=== PATIENT | female | born 1955 | race Two or more races ===

== ENCOUNTER 2017-07-29 06:37 | Day surgery (SDC) | payer MEDICAID ==
[2017-07-28 11:32] LABS: Basophils # (auto) 0 uL; Basophils % (auto) 0.8 % (0.0-2.0); Eosinophils # (auto) 0.1 uL; Eosinophils % (auto) 1.9 % (0.0-7.0); Hematocrit 40.9 % (36.0-46.0); Hemoglobin 13.8 g/dL (12.2-16.2); Lymphocytes # (auto) 2.3 uL; Lymphocytes % (auto) 36.4 % (10.0-50.0); Mean Corpuscular Hemoglobin 32.5 pg (28.0-32.0); Mean Corpuscular Hgb Conc. 33.8 g/dL (32.0-36.0); Monocytes # (auto) 0.4 uL; Monocytes % (auto) 6.2 % (0.0-12.0); Neutrophils # (auto) 3.5 uL; Neutrophils % (auto) 54.7 % (37.0-80.0); Nucleated Red Blood Cells % 0.1 %; Platelet Count (auto) 428 10^3/uL (140-450); Red Blood Cells 4.26 10^6/uL (4.0-5.20); Red Cell Distribution Width 13.8 % (11.8-14.3); White Blood Cell 6.4 10^3/uL (4.4-10.8)
[2017-07-28 11:47] LABS: INR 0.98 (0.9-1.15); Partial Thromboplastin Time 26.6 sec (22.64-33.71); Prothrombin Time 10.7 sec (9.37-12.3)
[2017-07-28 11:51] LABS: Albumin 3.3 g/dL (3.4-5.0); BUN/Creatinine Ratio 21.4; Bilirubin, Total 0.4 mg/dL (0.2-1.0); Calcium 9.4 mg/dL (8.5-10.1); Potassium 4.2 mmol/L (3.5-5.1); Total Protein 6.6 g/dL (6.4-8.2)
[~2017-07-29] VITALS: Ht 160 cm; Wt 78.5 kg
[~2017-07-29 06:37] MED LIST: LEVO150T10 PO; SIMV-8 PO
[2017-07-29] MEDS ORDERED: ONDANSETRON HCL 4 MG/2 ML VIAL ONE (07:54)
[2017-07-29] MEDS ORDERED: PROPOFOL 10 MG/ML 20 ML IV ONE (07:54)
[2017-07-29] MEDS ORDERED: MIDAZOLAM HCL 1MG/1ML-2 ML VIAL ONE (07:54)
[2017-07-29] MEDS ORDERED: fentaNYL CITRATE 100 MCG/2 ML VL ONE (07:54)
[2017-07-29] MEDS ORDERED: BUPIVACAINE 0.75% INJ 10ML MPV SDV IJ ONE (08:32)
[2017-07-29] MEDS ORDERED: METOCLOPRAMIDE HCL 5MG/ml INJ 2ml VIAL IV ONE (09:15)
[2017-07-29] MEDS ORDERED: MORPHINE SULFATE 8mg/ml INJ SDV IV PRN (09:15)
[2017-07-29 09:39] VITALS: BP 99/66
== END 2017-07-29 09:49 | disposition home or self-care (01) ==
LOC: SUR 06:37
PROVIDERS: ATTEND Podiatrist Foot & Ankle Surgery
DX: M21.611 Bunion of right foot (principal); M20.11 Hallux valgus (acquired), right foot; E66.9 Obesity, unspecified; Z98.51 Tubal ligation status; E78.00 Pure hypercholesterolemia, unspecified; E03.9 Hypothyroidism, unspecified
CPT/HCPCS: 28296; J3010; 36415; 73620; 80053; 85025; 85610; 85730; C1769; J2250; J2405; J2704; J3490

== ENCOUNTER 2017-11-18 07:35 | Day surgery (SDC) | payer MEDICAID ==
[2017-11-17 15:06] LABS: Basophils # (auto) 0 uL; Basophils % (auto) 0.4 % (0.0-2.0); Eosinophils # (auto) 0.1 uL; Eosinophils % (auto) 1.7 % (0.0-7.0); Hematocrit 42.8 % (36.0-46.0); Hemoglobin 14.6 g/dL (12.2-16.2); Lymphocytes # (auto) 3.1 uL; Lymphocytes % (auto) 37.1 % (10.0-50.0); Mean Corpuscular Hemoglobin 30.7 pg (28.0-32.0); Mean Corpuscular Hgb Conc. 34.1 g/dL (32.0-36.0); Mean Corpuscular Volume 90.1 fL (80.0-100.0); Monocytes # (auto) 0.4 uL; Monocytes % (auto) 4.9 % (0.0-12.0); Neutrophils # (auto) 4.6 uL; Neutrophils % (auto) 55.9 % (37.0-80.0); Nucleated Red Blood Cells % 0.1 %; Platelet Count (auto) 374 10^3/uL (140-450); Red Blood Cells 4.75 10^6/uL (4.0-5.20); White Blood Cell 8.3 10^3/uL (4.4-10.8)
[2017-11-17 15:24] LABS: Albumin 3.6 g/dL (3.4-5.0); BUN/Creatinine Ratio 13.1; Bilirubin, Total 0.8 mg/dL (0.2-1.0); Potassium 4.1 mmol/L (3.5-5.1); Total Protein 7.2 g/dL (6.4-8.2)
[2017-11-17 15:31] LABS: INR 0.94 (0.9-1.15); Prothrombin Time 10.1 sec (9.27-12.13)
[~2017-11-18] VITALS: Ht 160 cm; Wt 77.1 kg
[2017-11-18] MEDS ORDERED: ceFAZolin 1GM/50ML 50 ML IV ONE (08:46)
[2017-11-18] MEDS ORDERED: BUPIVACAINE 0.75% INJ 10ML MPV SDV IJ ONE (09:40)
[2017-11-18] MEDS ORDERED: NEOMYCIN-BACITRACIN-POLYM 15GM TOP OINT TOP ONE (09:41)
[2017-11-18] MEDS ORDERED: LIDOCAINE 1% HCL (LOCAL ANESTH.) INJ 20ML MDV ONE (09:57)
[2017-11-18] MEDS ORDERED: SUCCINYLCHOLINE CHLORIDE 20 MG/ML 10ML VIAL IV ONE (09:57)
[2017-11-18] MEDS ORDERED: LIDOCAINE HCL 2% TOP JELLY 5ML TOP ONE (10:04)
[2017-11-18] MEDS ORDERED: MIDAZOLAM HCL 1MG/1ML-2 ML VIAL ONE (10:04)
[2017-11-18] MEDS ORDERED: PROPOFOL 10 MG/ML 20 ML IV ONE (10:04)
[2017-11-18] MEDS ORDERED: METOCLOPRAMIDE HCL 5MG/ml INJ 2ml VIAL ONE (10:11)
[2017-11-18] MEDS ORDERED: fentaNYL CITRATE 100 MCG/2 ML VL ONE (10:17)
[2017-11-18] MEDS ORDERED: SODIUM CHLORIDE LOCK 10 ML ONE (10:19)
[2017-11-18] MEDS ORDERED: ePHEDrine SULFATE 50 MG/ML AMP ONE (10:19)
[2017-11-18] MEDS ORDERED: ONDANSETRON HCL 4 MG/2 ML VIAL IV ONE (10:30)
[2017-11-18] MEDS ORDERED: NALOXONE HCL 0.4 MG/ML VIAL IV PRN (10:30)
[2017-11-18] MEDS ORDERED: MORPHINE SULFATE 4 MG/ML SYR/VIAL IV PRN (10:30)
[2017-11-18 11:13] VITALS: BP 144/67
== END 2017-11-18 11:23 | disposition home or self-care (01) ==
LOC: SUR 07:35
PROVIDERS: ATTEND Podiatrist Foot & Ankle Surgery
DX: T84.84XA Pain due to internal orthopedic prosthetic devices, implants and grafts, initial encounter (principal); L90.5 Scar conditions and fibrosis of skin; E66.9 Obesity, unspecified; F17.210 Nicotine dependence, cigarettes, uncomplicated; E89.0 Postprocedural hypothyroidism; E78.00 Pure hypercholesterolemia, unspecified; E07.9 Disorder of thyroid, unspecified; M19.90 Unspecified osteoarthritis, unspecified site; Z98.890 Other specified postprocedural states; Z79.899 Other long term (current) drug therapy; Y83.8 Other surgical procedures as the cause of abnormal reaction of the patient, or of later complication, without mention of misadventure at the time of the procedure; Y92.89 Other specified places as the place of occurrence of the external cause
CPT/HCPCS: 14040; 20680; J2765; J3010; J7030; 36415; 80053; 85025; 85610; 85730; 88302; J0330; J0690; J2001; J2250; J2704; J3490

== ENCOUNTER 2024-07-03 09:27 | Observation (INO) | payer MEDICARE, MEDICAID ==
[2024-07-03] VITALS (9 sets, daily range): BP systolic 117–128; BP diastolic 59–76; PULSE 62–78; RESP 16–18; TEMP 97.4–98.1; O2SAT 93–100
[~2024-07-03] VITALS: Ht 160 cm; Wt 83.5 kg
[~2024-07-03 09:27] MED LIST changes: -SIMV-8 PO; +SIMV20TA20 PO
--- NOTE | 2024-07-03 09:46 | ED.PDOC ---
SOB-HPI HPI Comments 69 y/o F, presents to the ED for CC of cough. Patient states, that she has been experiencing a cough with associated symptoms of chest pain that radiates to her back when coughing x1week. Patient relays, taking NyQuil for symptoms with no relief. Patient denies sore throat, fever, body aches, or N/V/D. No other associated symptoms, modifiers, recent injuries or sick contacts present at this time. Chief Complaint: Cough Time Seen by MD: 09:40 Reviewed notes: Nurses Notes, Medications, Allergies Information Source: Patient Mode of Arrival: Ambulatory Severity: Moderate Timing: Weeks Duration: Since onset Context: Spontaneous Onset PE Risk Factors: None History of: None Prehospital treatment: None Modifying Factors: Nothing Associated Signs and Symptoms: Cough If cough with SOB: Non-Productive Past Medical History PAST MEDICAL HISTORY: Denies Surgical History: Denies all surgeries BODY FINISHER History: Unknown Family History Family History: Unknown Social History Smoker: Non-Smoker Alcohol: Denies ETOH Use Drugs: Denies Drug Use Lives In: Home Constitutional: reports: chills; denies: diaphoresis, fatigue, fever, malaise, sweats, weakness, others EENTM: denies: blurred vision, double vision, ear bleeding, ear discharge, ear drainage, ear pain, ear ringing, eye pain, eye redness, hearing loss, mouth pain, mouth swelling, nasal discharge, nose bleeding, nose congestion, nose pain, photophobia, tearing, throat pain, throat swelling, voice changes, others Respiratory: reports: cough; denies: hemoptysis, orthopnea, SOB at rest, shortness of breath, SOB with excertion, stridor, wheezing, others Cardiovascular: reports: chest pain; denies: dizzy spells, diaphoresis, Dyspnea on exertion, edema, irregular heart beat, left arm pain, lightheadedness, palpitations, PND, syncope, others Gastrointestinal: denies: abdomen distended, abdominal pain, blood streaked bowels, constipated, diarrhea, dysphagia, difficulty swallowing, hematemesis, melena, nausea, poor appetite, poor fluid intake, rectal bleeding, rectal pain, vomiting, others Genitourinary: denies: abnormal vagina bleeding, burning, dyspareunia, dysuria, flank pain, frequency, hematuria, incontinence, pain, , vagina discharge, urgency, others Neurological: denies: dizziness, fainting, headache, left sided numbness, left sided weakness, numbness, paresthesia, pre-existing deficit, right sided numbness, right sided weakness, seizure, speech problems, tingling, tremors, weakness, others Musculoskeletal: denies: back pain, gout, joint pain, joint swelling, muscle pain, muscle stiffness, neck pain, others Integumetry: denies: bruises, change in color, change in hair/nails, dryness, laceration, lesions, lumps, rash, wounds, others Allergic/Immunocompromised: denies: Difficulty Healing, Frequent Infections, Hives, Itching, others Hematologic/Lymphatic: denies: anemia, blood clots, easy bleeding, easy bruising, swollen glands, others Endocrine: denies: excessive hunger, excessive sweating, excessive thirst, excessive urination, flushing, intolerance to cold, intolerance to heat, unexplained weight gain, unexplained weight loss, others Psychiatric: denies: anxiety, bipolar disorder, depression, hopeless, panic disorder, schizophrenia, sleepless, suicidal, others All Other Systems: Reviewed and Negative Physical Exam General Appearance: No Apparent Distress, Normal HEENT: Normal ENT Inspection, Pharynx Normal, TMs Normal, Other (non-productive cough) Neck: Full Range of Motion, Non-Tender, Normal, Normal Inspection Respiratory: Chest Non-Tender, Lungs Clear, No Accessory Muscle Use, No Respiratory Distress, Normal Breath Sounds Cardiovascular: No Edema, No JVD, No Murmur, No Gallop, Normal Peripheral Pulses, Regular Rate/Rhythm Breast Exam: Deferred Gastrointestinal: No Organomegaly, Non Tender, No Pulsatile Mass, Normal Bowel Sounds, Soft Genitalia: Deferred Pelvic: Deferred Rectal: Deferred Extremities: No calf tenderness, Normal capillary refill, Normal inspection, Normal range of motion, Non-tender, No pedal edema Musculoskeletal : Apperance: Normal Neurologic: Alert, data entry manager II-XII nml as Tested, No Motor Deficits, Normal Affect, Normal Mood, No Sensory Deficits Cerebellar Function: Normal Reflexes: Normal Skin: Dry, Normal Color, Warm Lymphatic: No Adenopathy Was a procedure done? Was a procedure done?: No Differential Dx Differential Diagnosis: Bronchitis, Pneumonia, Sinusitis, Pharyngitis, URI X-Ray, Labs, Meds, VS Vital Signs Date Time Temp Pulse Resp B/P (MAP) Pulse Ox O2 Delivery O2 Flow Rate FiO2 07/03/24 11:35 74 18 93 Room Air* 0 21 07/03/24 11:29 74 18 118/76 (90) 93 07/03/24 09:31 98.1 83 20 99/81 (87) 94 98.1 07/03/24 09:31 20 94 Room Air* 0 21 07/03/24 09:31 83 20 94 Room Air 07/03/24 09:31 98.1 83 20 99/81 (87) 94 98.1 Lab Test 07/03/24 11:10 07/03/24 09:30 Range/Units White Blood Count 4.9 4.4-10.8 10^3/uL Red Blood Count 4.35 4.0-5.20 10^6/uL Hemoglobin 14.1 12.2-16.2 g/dL Hematocrit 42.8 36.0-46.0 % Mean Corpuscular Volume 98.5 80.0-100.0 fL Mean Corpuscular Hemoglobin 32.5 H 28.0-32.0 pg Mean Corpuscular Hemoglobin Concent 33.0 32.0-36.0 g/dL Red Cell Distribution Width 15.0 H 11.8-14.3 % Platelet Count 420 140-450 10^3/uL Mean Platelet Volume 6.6 L 6.9-10.8 fL Neutrophils (%) (Auto) 43.8 37.0-80.0 % Lymphocytes (%) (Auto) 47.6 10.0-50.0 % Monocytes (%) (Auto) 5.6 0.0-12.0 % Eosinophils (%) (Auto) 2.5 0.0-7.0 % Basophils (%) (Auto) 0.5 0.0-2.0 % Neutrophils # (Auto) 2.2 1.6-8.6 10 ^3/uL Lymphocytes # (Auto) 2.3 0.4-5.4 10 ^3/uL Monocytes # (Auto) 0.3 0-1.3 10 ^3/uL Eosinophils # (Auto) 0.1 0-0.8 10 ^3/uL Basophils # (Auto) 0 0-0.2 10 ^3/uL Nucleated Red Blood Cells 0.2 % Sodium Level 141 136-145 mmol/L Potassium Level 4.3 3.5-5.1 mmol/L Chloride Level 112 H 98-107 mmol/L Carbon Dioxide Level 26 20-31 mmol/L Anion Gap 3 L 5-15 Blood Urea Nitrogen 14 9-23 mg/dL Creatinine 1.07 H 0.550-1.02 mg/dL Glomerular Filtration Rate Calc 56 >90 mL/min BUN/Creatinine Ratio 13.1 10.0-20.0 Serum Glucose 96 74-106 mg/dL Lactic Acid Level 0.7 0.4-2.0 mmol/L Calcium Level 9.5 8.7-10.4 mg/dL Troponin I High Sensitivity < 3 L </=34 ng/L B-Type Natriuretic Peptide 18.98 0-100 pg/mL Influenza Type A Antigen Negative Negative Influenza Type B Antigen Negative Negative SARS-CoV-2 Antigen (Rapid) Negative NEGATIVE Current Medications Medications (Trade) Dose Ordered Sig/Xu Route Start Time Stop Time Status Last Admin Acetaminophen (Tylenol Tablet) 650 mg ONCE ONCE PO 07/03/24 09:45 07/03/24 09:46 DC 07/03/24 10:07 Pseudoephedrine HCl (Sudafed Tablet) 60 mg ONCE ONCE PO 07/03/24 09:45 07/03/24 09:46 DC 07/03/24 10:08 Azithromycin (Zithromax Tablet) 500 mg ONCE ONCE PO 07/03/24 11:00 07/03/24 11:01 DC 07/03/24 11:32 Cefepime HCl 50 ml @ 12.5 mls/hr ONCE ONCE IV 07/03/24 11:00 07/03/24 14:59 07/03/24 11:31 Vancomycin HCl 200 ml @ 200 mls/hr ONCE ONCE IV 07/03/24 11:00 07/03/24 11:59 DC 07/03/24 11:32 Sodium Chloride 1,000 ml @ 1,000 mls/hr Q1H ONCE IV 07/03/24 11:00 07/03/24 11:59 DC 07/03/24 11:[address] [address] Ph: [phone] DIAGNOSTIC IMAGING Diagnostic Imaging Report : [id number] Signed PATIENT: HORTENSIA MARTINEZ ACCT: [id number] UNIT: [id number] : 1955 LOC: ER ROOM / BED: / AGE / SEX: 69 / F ADM STATUS: REG ER SERVICE [id number] ORDERING PHYSICIAN: YESICA MATTHEWS MD PROCEDURE(s): CXR2 - CHEST TWO VIEWS ROUTINE REASON: cough ORDER NUMBER(s): [id number], ACCESSION NUMBER(s): [id number] CHEST RADIOGRAPH Indication: cough Technique: 2 views of the chest Comparison: None FINDINGS: The cardiac silhouette is unremarkable. The lungs demonstrate perihilar, left basilar airspace opacities. The pulmonary vasculature is prominent. There is no pleural effusion.. There is no pneumothorax. Elevation left hemidiaphragm. IMPRESSION: 1. As above ATED BY: AGUILAR BAILEY MD DICTATED DATE/TIME: 07/03/24 1014 SIGNED BY: AGUILAR BAILEY MD SIGNED DATE/TIME: 07/03/24 1014 CC: Time of 1ST Reevaluation: 10:20 Reevaluation 1ST: Unchanged Patient Education/Counseling: Diagnosis, Treatment Family Education/Counseling: No Family Present Departure 1 Departure Time of Disposition: 12:02 (Patient's x-rays concerning for pneumonia. Empi rically cover patient with antibiotics. The patient has signs of volume overload we will not give patient the full fluid bolus. We will have patient for further workup and expert consultation) Impression: Primary Impression: Left lower lobe pneumonia Qualified Codes: J18.9 - Pneumonia, unspecified organism Disposition: ADMITTED INPATIENT Admit to: Med Surg Condition: Serious Critical Care Note Critical Care Time?: No Stability Stability form required: No Heart Score Heart Score: Heart Score Response (Comments) Value History N/A 0 EKG N/A 0 Age N/A 0 Risk Factors N/A 0 Troponin N/A 0 Total 0 I personally scribed for YESICA MATTHEWS MD ([email or web address]) on 07/03/24 at 09:46. Electronically submitted by Aliica oLmbardi ([email or web address]). I personally scribed for YESICA MATTHEWS MD ([email or web address]) on 07/03/24 at 10:26. Electronically submitted by Alicia Lombardi ([email or web address]). I personally scribed for YESICA MATTHEWS MD ([email or web address]) on 07/03/24 at 11:25. Electronically submitted by Alicia Lombardi ([email or web address]). YESICA MATTHEWS MD Jul 03, 2024 09:46
[2024-07-03] MEDS: ACETAMINOPHEN 325 MG TAB PO ONE (10:07)
[2024-07-03] MEDS: PSEUDOEPHEDRINE HCL 30 MG TAB PO ONE (10:08)
--- NOTE | 2024-07-03 10:17 | DVH ---
CHEST RADIOGRAPH Indication: cough Technique: 2 views of the chest Comparison: None FINDINGS: The cardiac silhouette is unremarkable. The lungs demonstrate perihilar, left basilar airspace opacit ies. The pulmonary vasculature is prominent. There is no pleural effusion.. There is no pneumothorax. Elevation left hemidiaphragm. IMPRESSION: 1. As above
[2024-07-03 10:24] LABS: COVID19 ANTIGEN SOFIA FIA NEGATIVE (NEGATIVE); Rapid Influenza A Negative (Negative); Rapid Influenza B Negative (Negative)
[2024-07-03] MEDS: SODIUM CHLORIDE 0.9% 1,000 ML IV ONE (11:29)
[2024-07-03] MEDS: CEFEPIME 2GM/50ML NS 50 ML IV ONE (11:31)
[2024-07-03] MEDS: AZITHROMYCIN 250 MG TAB PO ONE (11:32)
[2024-07-03] MEDS: VANCOMYCIN 1GM/200ML PM 200 ML IV ONE (11:32)
[2024-07-03 11:35] LABS: Basophils # (auto) 0 10 ^3/uL (0-0.2); Basophils % (auto) 0.5 % (0.0-2.0); Eosinophils # (auto) 0.1 10 ^3/uL (0-0.8); Eosinophils % (auto) 2.5 % (0.0-7.0); Hematocrit 42.8 % (36.0-46.0); Hemoglobin 14.1 g/dL (12.2-16.2); Lymphocytes # (auto) 2.3 10 ^3/uL (0.4-5.4); Lymphocytes % (auto) 47.6 % (10.0-50.0); Mean Corpuscular Hemoglobin 32.5 pg (28.0-32.0); Mean Corpuscular Volume 98.5 fL (80.0-100.0); Monocytes # (auto) 0.3 10 ^3/uL (0-1.3); Monocytes % (auto) 5.6 % (0.0-12.0); Neutrophils # (auto) 2.2 10 ^3/uL (1.6-8.6); Neutrophils % (auto) 43.8 % (37.0-80.0); Nucleated Red Blood Cells % 0.2 %; Platelet Count (auto) 420 10^3/uL (140-450); Red Blood Cells 4.35 10^6/uL (4.0-5.20); White Blood Cell 4.9 10^3/uL (4.4-10.8)
[2024-07-03 11:44] LABS: Potassium 4.3 mmol/L (3.5-5.1); Sodium 141 mmol/L (136-145)
[2024-07-03 11:45] LABS: Anion Gap 3 (5-15); Calcium 9.5 mg/dL (8.7-10.4); Carbon Dioxide 26 mmol/L (20-31)
[2024-07-03 11:50] LABS: BUN/Creatinine Ratio 13.1 (10.0-20.0); Blood Urea Nitrogen 14 mg/dL (9-23); Glucose 96 mg/dL (74-106)
[2024-07-03 11:51] LABS: Chloride 112 mmol/L (98-107)
[2024-07-03] MEDS ORDERED: IPRATROPIUM BROM 0.5 MG/2.5ML INH SOL NEB PRN (15:00)
[2024-07-03] MEDS ORDERED: ACETAMINOPHEN 325 MG TAB PO PRN (15:00)
[2024-07-03] MEDS ORDERED: ALBUTEROL SULF 2.5 MG/0.5ML(0.5%) NEB SOLN NEB PRN (15:00)
[2024-07-03] MEDS ORDERED: ONDANSETRON HCL 4 MG/2 ML VIAL IV PRN (15:00)
[2024-07-03] MEDS ORDERED: HYDROcodone-ACET 5/325MG TAB PO PRN (15:00)
[2024-07-03] MEDS ORDERED: MORPHINE SULFATE INJ 2 MG/ml SYRG IV PRN (15:00)
--- NOTE | 2024-07-03 15:27 | DVHHP2 ---
History of Present Illness Reason for Visit: Cough History of Present Illness This 69-year-old female Korean mainly speaking with past medical history of thyroid cancer, hyperlipidemia, depression, IBS, tobacco use, and obesity, presents in the ED with a chief complaint of cough. The patient reports symptoms of cough started a week ago and is associated with chest congestion productive mucus, and rib pain. Denies fever, chills, chest pain, shortness of breath, or other acute symptoms. Past Medical History As stated in HPI Past Surgical History Denies Family History Reviewed, non-contributory to the management of this case. Past Social History Admits to tobacco use half a pack per day Denies illicit drug or ETOH abuse Review of Systems Constitutional: Yes: Malaise; No: Fever, Chills, Sweats, Weakness, Other Eyes: No: Pain, Vision change, Conjunctivae inflammation, Eyelid inflammation, Other, Redness Respiratory: Cough, Shortness of breath; No: Dry, SOB with excertion, Wheezing, Hemoptysis, Pleuritic Pain, Sputum, Wheezing, Other Cardiovascular: No: Chest Pain, Palpitations, Orthopnea, Paroxysmal Noc. Dyspne a, Edema, Lt Headedness, Other Gastrointestinal: No: Nausea, Vomiting, Abdominal Pain, Diarrhea, Constipation, Melena, Hematochezia, Other Musculoskeletal: No: other, neck pain, shoulder pain, arm pain, back pain, hand pain, leg pain, foot pain Skin: No: Rash, Lesions, Jaundice, Bruising, Other Neurological: No: Weakness, Numbness, Incoordination, Change in speech, Confusion, Seizures, Other Allergies: Coded Allergies: NO KNOWN ALLERGIES (Unverified , 07/28/17) Medications Current Medications Medications Dose Ordered Sig/Xu Route Start Time Stop Time Status Last Admin Dose Admin Patient Own Medication 1 tab DAILY PO 07/04/24 10:00 UNV Patient Own Medication 20 mg DAILY PO 07/04/24 10:00 UNV Acetaminophen/ Hydrocodone Bitart 1 tab Q4HP PRN PO 07/03/24 15:00 Ondansetron HCl 4 mg Q4HP PRN IV 07/03/24 15:00 Enoxaparin Sodium 40 mg DAILY SC 07/04/24 10:00 Acetaminophen 650 mg Q6HP PRN PO 07/03/24 15:00 Morphine Sulfate 2 mg Q4HPRN PRN IV 07/03/24 15:00 Ceftriaxone Sodium 50 ml @ 100 mls/hr DAILY@09 IV 07/04/24 09:00 Azithromycin 250 ml @ 125 mls/hr DAILY IV 07/04/24 10:00 Albuterol 2.5 mg Q4HPRN PRN NEB 07/03/24 15:00 Albuterol 2.5 mg Q6HR NEB 07/03/24 18:00 Ipratropium Conway 0.5 mg Q4HPRN PRN NEB 07/03/24 15:00 Ipratropium [place] 0.5 mg Q6HR NEB 07/03/24 18:00 Exam Vital Signs Vital Signs Date Time Temp Pulse Resp B/P (MAP) Pulse Ox O2 Delivery O2 Flow Rate FiO2 07/03/24 12:31 68 07/03/24 11:35 18 93 Room Air* 0 21 07/03/24 11:29 118/76 (90) 07/03/24 09:31 98.1 98.1 General Appearance: Alert, Oriented X3, Cooperative, mild distress HEENT: Atraumatic, PERRLA, EOMI Respiratory: Other (Diminished lung sounds) Cardiovascular: Regular rate, Normal S1, Normal S2 Abdominal: Normal bowel sounds, Soft, No tenderness Extremities: No clubbing, No cyanosis, No edema Skin: No rashes, No breakdown Neuro: Normal tone Psych/Mental Status: Mental status NL Labs/Xrays Labs Test 07/03/24 11:10 07/03/24 09:30 Range/Units White Blood Count 4.9 4.4-10.8 10^3/uL Red Blood Count 4.35 4.0-5.20 10^6/uL Hemoglobin 14.1 12.2-16.2 g/dL Hematocrit 42.8 36.0-46.0 % Mean Corpuscular Volume 98.5 80.0-100.0 fL Mean Corpuscular Hemoglobin 32.5 H 28.0-32.0 pg Mean Corpuscular Hemoglobin Concent 33.0 32.0-36.0 g/dL Red Cell Distribution Width 15.0 H 11.8-14.3 % Platelet Count 420 140-450 10^3/uL Mean Platelet Volume 6.6 L 6.9-10.8 fL Neutrophils (%) (Auto) 43.8 37.0-80.0 % Lymphocytes (%) (Auto) 47.6 10.0-50.0 % Monocytes (%) (Auto) 5.6 0.0-12.0 % Eosinophils (%) (Auto) 2.5 0.0-7.0 % Basophils (%) (Auto) 0.5 0.0-2.0 % Neutrophils # (Auto) 2.2 1.6-8.6 10 ^3/uL Lymphocytes # (Auto) 2.3 0.4-5.4 10 ^3/uL Monocytes # (Auto) 0.3 0-1.3 10 ^3/uL Eosinophils # (Auto) 0.1 0-0.8 10 ^3/uL Basophils # (Auto) 0 0-0.2 10 ^3/uL Nucleated Red Blood Cells 0.2 % Sodium Level 141 136-145 mmol/L Potassium Level 4.3 3.5-5.1 mmol/L Chloride Level 112 H 98-107 mmol/L Carbon Dioxide Level 26 20-31 mmol/L Anion Gap 3 L 5-15 Blood Urea Nitrogen 14 9-23 mg/dL Creatinine 1.07 H 0.550-1.02 mg/dL Glomerular Filtration Rate Calc 56 >90 mL/min BUN/Creatinine Ratio 13.1 10.0-20.0 Serum Glucose 96 74-106 mg/dL Lactic Acid Level 0.7 0.4-2.0 mmol/L Calcium Level 9.5 8.7-10.4 mg/dL Troponin I High Sensitivity < 3 L </=34 ng/L B-Type Natriuretic Peptide 18.98 0-100 pg/mL Influenza Type A Antigen Negative Negative Influenza Type B Antigen Negative Negative SARS-CoV-2 Antigen (Rapid) Negative NEGATIVE PROCEDURE(s): CXR2 - CHEST TWO VIEWS ROUTINE REASON: cough ORDER NUMBER(s): [id number], ACCESSION NUMBER(s): [id number] CHEST RADIOGRAPH Indication: cough Technique: 2 views of the chest Comparison: None FINDINGS: The cardiac silhouette is unremarkable. The lungs demonstrate perihilar, left basilar airspace opacities. The pulmonary vasculature is prominent. There is no pleural effusion.. There is no pneumothorax. Elevation left hemidiaphragm. IMPRESSION: 1. As above Assessment/Plan Assessment/Plan # left lower lobe pneumonia Admit to medical unit Empiric antibiotic Med neb treatment Blood and sputum culture Chest x-ray in a.m. # CHANELLE on CKD 3 A IV fluid Monitor kidney function # hyperlipidemia Statins Check lipid panel # hx of thyroid cancer Levothyroxine Check TSH # depression Citalopram # IBS Dicyclomine # tobacco use Smoking cessation counseled Nicotine patch # obesity Lifestyle modification counseled with diet, regular exercise, weight loss DVT prophylaxis Medical plan discussed with patient, spouse, and RN Plan discussed with: Patient My Orders Orders - MAITE ROCHA SNACK STEWARDESS Procedure Category Date Status Time Chest Portable XY 07/04/24 Logged 04:00 (Nf) Levothyroxine PHA 07/04/24 Logged Sodium 10:00 (Nf) Simvastatin PHA 07/04/24 Logged 10:00 Lipid Panel LAB 07/03/24 In Process 14:59 Thyroid Stimulating LAB 07/03/24 In Process Hormone 14:59 Admit ADMIT 07/03/24 Transmitted 14:59 Code Status CODE 07/03/24 Transmitted 14:59 Hydrocodone-Acet PHA 07/03/24 In Process 5/325mg Tab (Wilson 15:00 Ondansetron Hcl PHA 07/03/24 In Process (Zofran) 15:00 Enoxaparin Sodium PHA 07/04/24 In Process (Lovenox) 10:00 Fall Risk Precautions ANUSHA 07/03/[address] 14:59 Complete Blood Count LAB 07/04/24 Verified 04:00 Comprehensive LAB 07/04/24 Verified Metabolic Panel 04:00 Cardiac DIET 07/03/24 Transmitted Diet-2gna,Lofat,Lochol Dinner Condition: Fair ANUSHA 07/03/24 In Process 14:59 Acetaminophen Tablet PHA 07/03/24 In Process (Tylenol Tablet) 15:00 Morphine Sulfate PHA 07/03/24 In Process Injection 15:00 Ceftriaxone 1gm/50ml PHA 07/04/24 In Process D5w (Rocephin) 09:00 Azithromycin 500mg/ PHA 07/04/24 In Process 250ml (Zithromax 50 10:00 Respiratory Culture DEANNA 07/03/24 Logged W/ Gs 14:59 Albuterol Medneb PHA 07/03/24 In Process (Ventolin Medneb) 15:00 Albuterol Medneb PHA 07/03/24 In Process (Ventolin Medneb) 18:00 Ipratropium Medneb PHA 07/03/24 In Process (Atrovent Medneb) 15:00 Ipratropium Medneb PHA 07/03/24 In Process (Atrovent Medneb) 18:00 Date of Service: Jul 03, 2024 Billing Provider: MAITE ROCHA Common Visit Codes: [id number] INP/OBS CARE (HIGH) MAITE ROCHA Jul 03, 2024 15:27
[2024-07-03] MEDS: SODIUM CHLORIDE 0.9% 1,000 ML IV SCH (15:34)
[2024-07-03] MEDS: NICOTINE 7MG/24HR TOPICAL PATCH TD ONE (15:34)
[2024-07-03 15:46] LABS: Cholesterol 277 mg/dL (< 200); HDL Cholesterol 40 mg/dL (40-59); LDL Cholesterol 206 mg/dL (< 100); Triglycerides 233 mg/dL (< 150)
[2024-07-03] MEDS: ALBUTEROL SULF 2.5 MG/0.5ML(0.5%) NEB SOLN NEB SCH (19:27)
[2024-07-03] MEDS: IPRATROPIUM BROM 0.5 MG/2.5ML INH SOL NEB SCH (19:27)
[2024-07-03] MEDS: ATORVASTATIN 20 MG TAB PO SCH (21:22)
[2024-07-04] VITALS (8 sets, daily range): BP systolic 110–126; BP diastolic 57–75; PULSE 65–88; RESP 16–18; TEMP 97.8–98.8; O2SAT 91–100
[2024-07-04] MEDS: LEVOTHYROXINE SODIUM 25 MCG TAB PO SCH (05:27)
[2024-07-04] MEDS: LEVOTHYROXINE SODIUM 112 MCG TAB PO SCH (05:27)
--- NOTE | 2024-07-04 06:15 | DVH ---
CHEST RADIOGRAPH Indication: pna Technique: Single frontal view of the chest was obtained Comparison: None FINDINGS: Lines and Tubes: None Lungs: No focal consolidation. Pleura: No effusion. No pneumothorax. Cardiomediastinal contours: Unremarkable Bones: No acute osseous abnormality. IMPRESSION: 1. No acute cardiopulmonary disease.
[2024-07-04 07:08] LABS: Basophils # (auto) 0 10 ^3/uL (0-0.2); Basophils % (auto) 0.8 % (0.0-2.0); Eosinophils # (auto) 0.1 10 ^3/uL (0-0.8); Eosinophils % (auto) 2.2 % (0.0-7.0); Hematocrit 37.4 % (36.0-46.0); Hemoglobin 12.7 g/dL (12.2-16.2); Lymphocytes # (auto) 2.9 10 ^3/uL (0.4-5.4); Mean Corpuscular Hemoglobin 33.4 pg (28.0-32.0); Mean Corpuscular Volume 98.1 fL (80.0-100.0); Monocytes # (auto) 0.4 10 ^3/uL (0-1.3); Monocytes % (auto) 5.9 % (0.0-12.0); Neutrophils # (auto) 2.7 10 ^3/uL (1.6-8.6); Neutrophils % (auto) 44.1 % (37.0-80.0); Nucleated Red Blood Cells % 0.1 %; Platelet Count (auto) 369 10^3/uL (140-450); Red Blood Cells 3.81 10^6/uL (4.0-5.20); Red Cell Distribution Width 14.8 % (11.8-14.3); White Blood Cell 6.1 10^3/uL (4.4-10.8)
[2024-07-04 07:18] LABS: Alanine Aminotransferase 23 U/L (7-40); Alkaline Phosphatase 115 U/L (46-116); Anion Gap 6 (5-15); Aspartate Aminotransferase 19 U/L (13-40); BUN/Creatinine Ratio 14.9 (10.0-20.0); Blood Urea Nitrogen 14 mg/dL (9-23); Calcium 8.9 mg/dL (8.7-10.4); Carbon Dioxide 23 mmol/L (20-31); Glucose 81 mg/dL (74-106); Sodium 142 mmol/L (136-145); Total Protein 6.2 g/dL (5.7-8.2)
[2024-07-04 07:19] LABS: Bilirubin, Total 0.6 mg/dL (0.2-1.0)
[2024-07-04 07:22] LABS: Chloride 113 mmol/L (98-107)
[2024-07-04] MEDS ORDERED: LEVO750T40 PO (08:08)
[2024-07-04] MEDS ORDERED: IPRA0.00 IN (08:42)
[2024-07-04] MEDS ORDERED: METH4PAK PO (08:42)
[2024-07-04] MEDS: cefTRIAXone 1GM/50ML D5W 50 ML IV SCH (09:10)
[2024-07-04] MEDS: methylPREDNISolone SOD SUCC 40 MG/ML VL IV ONE (09:10)
[2024-07-04] MEDS: ENOXAPARIN SOD 40 MG/0.4 ML SYRINGE SC SCH (09:10)
[2024-07-04] MEDS: AZITHROMYCIN 500MG/ 250ML 250 ML IV SCH (09:11)
[2024-07-04] MEDS: NICOTINE 7MG/24HR TOPICAL PATCH TD SCH (09:11)
--- NOTE | 2024-07-04 12:45 | DVHDS2 ---
Discharge Summary Date of Admission Jul 03, 2024 at 14:59 Date of Discharge: Jul 04, 2024 Labs/Diagnostic Data: Laboratory Results Test 07/04/24 04:47 07/03/24 11:10 07/03/24 09:30 White Blood Count 6.1 10^3/uL (4.4-10.8) Red Blood Count 3.81 10^6/uL (4.0-5.20) Hemoglobin 12.7 g/dL (12.2-16.2) Hematocrit 37.4 % (36.0-46.0) Mean Corpuscular Volume 98.1 fL (80.0-100.0) Mean Corpuscular Hemoglobin 33.4 pg (28.0-32.0) Mean Corpuscular Hemoglobin Concent 34.0 g/dL (32.0-36.0) Red Cell Distribution Width 14.8 % (11.8-14.3) Platelet Count 369 10^3/uL (140-450) Mean Platelet Volume 6.9 fL (6.9-10.8) Neutrophils (%) (Auto) 44.1 % (37.0-80.0) Lymphocytes (%) (Auto) 47.0 % (10.0-50.0) Monocytes (%) (Auto) 5.9 % (0.0-12.0) Eosinophils (%) (Auto) 2.2 % (0.0-7.0) Basophils (%) (Auto) 0.8 % (0.0-2.0) Neutrophils # (Auto) 2.7 10 ^3/uL (1.6-8.6) Lymphocytes # (Auto) 2.9 10 ^3/uL (0.4-5.4) Monocytes # (Auto) 0.4 10 ^3/uL (0-1.3) Eosinophils # (Auto) 0.1 10 ^3/uL (0-0.8) Basophils # (Auto) 0 10 ^3/uL (0-0.2) Nucleated Red Blood Cells 0.1 % Sodium Level 142 mmol/L (136-145) Potassium Level 4.0 mmol/L (3.5-5.1) Chloride Level 113 mmol/L (98-107) Carbon Dioxide Level 23 mmol/L (20-31) Anion Gap 6 (5-15) Blood Urea Nitrogen 14 mg/dL (9-23) Creatinine 0.94 mg/dL (0.550-1.02) Glomerular Filtration Rate Calc 66 mL/min (>90) BUN/Creatinine Ratio 14.9 (10.0-20.0) Serum Glucose 81 mg/dL (74-106) Calcium Level 8.9 mg/dL (8.7-10.4) Total Bilirubin 0.6 mg/dL (0.2-1.0) Aspartate Amino Transferase (AST) 19 U/L (13-40) Alanine Aminotransferase (ALT) 23 U/L (7-40) Alkaline Phosphatase 115 U/L (46-116) Total Protein 6.2 g/dL (5.7-8.2) Albumin 4.0 g/dL (3.2-4.8) Lactic Acid Level 0.7 mmol/L (0.4-2.0) Troponin I High Sensitivity < 3 ng/L (</=34) B-Type Natriuretic Peptide 18.98 pg/mL (0-100) Triglycerides Level 233 mg/dL (< 150) Cholesterol Level 277 mg/dL (< 200) LDL Cholesterol 206 mg/dL (< 100) HDL Cholesterol 40 mg/dL (40-59) Thyroid Stimulating Hormone (TSH) 5.73 uIU/mL (0.55-4.78) Influenza Type A Antigen Negative (Negative) Influenza Type B Antigen Negative (Negative) SARS-CoV-2 Antigen (Rapid) Negative (NEGATIVE) Other Laboratory Tests 07/04/24 04:47 Brief Hx & Hospital Course: Patient is a 69F who presented with 1 week productive cough. Patient noted to have left lower lobe opacities suggestive of pneumonia. Patient was treated with ceftriaxone and azithromycin while in the hospital. CBC did not show any leukocytosis. CMP was within normal limits. Lipid panel showed elevated cholesterol and triglycerides. Patient was discharged on Levaquin for 5 days with DuoNebs and Medrol Dosepak. Patient was noted to be on room air. Patient discharged in stable condition. Patient to follow-up with her PCP. Condition at Discharge: Good Final Diagnosis/Problems List Pneumonia due to either gram positive or negative bacteria Secondary Diagnosis: Hyperlipidemia Discharge Disposition: Home Discharge Instruct/Medications Diet: Cardiac 2g Na,low cholest Activity: No Restrictions, As Tolerated Follow Up/Referral: Follow up with your PCP. Medications: LEvofloxacin Discharge Statement: "Patient was advised to return to the ER or call 911 if any headaches, dizziness, shortness of breath, chest pain, abdominal pain, bleeding, fevers, or worsening of medical condition. Patient was counseled about treatment plan, medications, possible side effects, patientverbalized understanding. All questions were answered to the best of my ability. This discharge took greater then 30 minutes in planning, reviewing documentation, counseling the patient, and discussing with other team members." ASSESSMENT ASSESSMENT Assessment Pneumonia HAVEN LANIER DO Jul 04, 2024 12:45
== END 2024-07-04 11:03 | disposition home or self-care (01) ==
LOC: ER 09:27 → OVERFLOW 14:59 → INTOOBSV 14:59 → EAST 16:11
PROVIDERS: ADMIT Nurse Practitioner Acute Care; ATTEND Student in an Organized Health Care Education/Training Program
DX: J18.9 Pneumonia, unspecified organism (principal); E78.00 Pure hypercholesterolemia, unspecified; F17.200 Nicotine dependence, unspecified, uncomplicated; E78.5 Hyperlipidemia, unspecified; R07.89 Other chest pain; M54.9 Dorsalgia, unspecified; R06.02 Shortness of breath; Z20.822 Contact with and (suspected) exposure to COVID-19; Z79.899 Other long term (current) drug therapy; Z98.890 Other specified postprocedural states
CPT/HCPCS: 36415; 71045; 71046; 80048; 80053; 80061; 83605; 83880; 84443; 84484; 85025; 87040; 87426; 87804; 94640; 96361; 96365; 96366; 96367; 96368; 96372; 96375; 99284; G0378; J0456; J0692; J0696; J1650; J2919; J3370; J7030